=== PATIENT | male | born 2000 | race American Indian/Alaskan Native ===

== ENCOUNTER 2022-07-18 20:59 | Observation (INO) | payer BC, MEDICAID ==
[2022-07-18] MEDS ORDERED: Sodium Chloride 0.9% 1,000 ML IV SCH ×2 (22:15→23:30)
[2022-07-18 22:24] LABS: BASOPHILS ABSOLUTE AUTO 0.04 K/uL (0.00-0.10); BASOPHILS PERCENT AUTO 0.5 % (0.1-1.3); EOSINOPHILS ABSOLUTE AUTO 0.03 K/uL (0.00-0.40); EOSINOPHILS PERCENT AUTO 0.4 % (0.0-5.4); HEMATOCRIT 49.8 % (38.4-49.7); HEMOGLOBIN 16.7 g/dL (12.9-16.9); IMMATURE GRAN PERCENT AUTO 0.2 % (0.0-0.7); LYMPHOCYTES ABSOLUTE AUTO 1.77 K/uL (0.8-3.3); LYMPHOCYTES PERCENT AUTO 21.3 % (11.4-47.7); MEAN CORPUSCULAR HEMOGLOBIN 31.3 pg (31.6-35.5); MEAN CORPUSCULAR HGB CONC 33.5 g/dL (31.6-35.5); MEAN CORPUSCULAR VOLUME 93.3 fL (81.4-99.0); MONOCYTES ABSOLUTE AUTO 0.48 K/uL (0.20-0.90); MONOCYTES PERCENT AUTO 5.8 % (3.3-12.6); NEUTROPHILS ABSOLUTE AUTO 5.97 K/uL (1.0-7.6); NEUTROPHILS PERCENT AUTO 71.8 % (40.0-78.1); PLATELET COUNT,PLT 239 K/uL (130-375); RED BLOOD CELL COUNT 5.34 M/uL (4.14-5.76); WHITE BLOOD CELL COUNT,WBC 8.3 K/uL (3.2-11.0)
[2022-07-18 22:30] LABS: IMMATURE GRAN ABSOLUTE AUTO 0.02 K/uL (0.00-0.23)
[2022-07-18 22:48] LABS: A/G RATIO 1.2 (1.2-2.2); ALANINE AMINOTRANSFERASE,ALT 39 U/L (12-78); ALBUMIN 4.5 g/dL (3.4-5.0); ALKALINE PHOSPHATASE 77 U/L (46-116); ASPARTATE AMNIOTRANSFERASE,AST 25 U/L (15-37); BILIRUBIN TOTAL 1.5 mg/dL (0.2-1.0); BLOOD UREA NITROGEN,BUN 11 mg/dL (7-18); CALCIUM 9.3 mg/dL (8.5-10.1); CARBON DIOXIDE,CO2 24 mmol/L (21-32); CHLORIDE,CL 100 mmol/L (100-108); EST CRCL DRUG DOSING (CG) 102.79 mL/min; ESTIMATED GFR 108 mL/min (>60); GLUCOSE RANDOM 77 mg/dL (74-106); MAGNESIUM 1.9 mg/dL (1.8-2.4); POTASSIUM,K 3.5 mmol/L (3.6-5.2); PROTEIN TOTAL,TP 8.3 g/dL (6.4-8.2); SODIUM,NA 137 mmol/L (140-148); TSH ULTRASENSITIVE 30.258 uIU/mL (0.358-3.740)
[2022-07-18 22:52] LABS: ANION GAP 16.5 mmol/L (5.0-14.0)
[2022-07-18] MEDS ORDERED: LORazepam 2 MG/ML SDV IVPUSH ONE (23:19)
[2022-07-19] MEDS ORDERED: Potassium Chloride 10 MEQ in Premix Bag 1 BAG IV ONE (00:51)
[2022-07-19] MEDS ORDERED: LORazepam 2 MG/ML SDV IV PRN (00:51)
[2022-07-19] MEDS ORDERED: Ondansetron 4 MG Tab.DIS PO PRN (00:51)
[2022-07-19] MEDS ORDERED: Enoxaparin 40 MG/0.4 ML Syringe SUBCUT SCH ×2 (00:51→21:00)
[2022-07-19] MEDS ORDERED: Acetaminophen 325 MG Tab PO PRN (00:51)
[2022-07-19] MEDS ORDERED: Albuterol 0.083% 2.5 MG/3 ML Neb Soln NEB PRN (00:51)
[2022-07-19] MEDS ORDERED: Melatonin 3 MG Tab PO PRN (00:51)
[2022-07-19] MEDS ORDERED: Morphine 2 MG/ML SYRINGE IVPUSH PRN (00:51)
[2022-07-19] MEDS ORDERED: Docusate Sodium 100 MG Cap PO PRN (00:51)
[2022-07-19] MEDS ORDERED: oxyCODONE 5 MG Tab PO PRN (00:51)
[2022-07-19 02:38] LABS: APPEARANCE,URINE CLEAR (CLEAR); BILIRUBIN,URINE NEGATIVE (NEGATIVE); COLOR,URINE YELLOW (YELLOW); GLUCOSE,URINE NEGATIVE (NEGATIVE); KETONES,URINE 80 mg/dL (NEGATIVE); LEUKOCYTE ESTERASE,URINE NEGATIVE (NEGATIVE); NITRITE,URINE NEGATIVE (NEGATIVE); OCCULT BLOOD,URINE TRACE-LYSED (NEGATIVE); PROTEIN,URINE NEGATIVE (NEGATIVE); UROBILINOGEN,URINE 0.2 EU/dL (0.2-1.0)
[2022-07-19 02:47] LABS: AMORPHOUS SEDIMENT,URINE NOT SEEN; BACTERIA,URINE RARE; EPITHELIAL CELLS,URINE NOT SEEN; MUCUS,URINE NOT SEEN; RBC,URINE 0-5 (0-5); WBC,URINE 0-5 (0-5)
[2022-07-19] MEDS ORDERED: Levothyroxine 100 MCG Tab PO SCH (07:30)
[2022-07-19] MEDS ORDERED: Pantoprazole 40 MG Vial IV SCH (09:00)
[2022-07-19] MEDS ORDERED: Pantoprazole 40 MG Tab.CR PO SCH (09:30)
== END 2022-07-19 12:55 | disposition home or self-care (01) ==
LOC: JP.ED 20:59 → JP.MS 23:57 → INTOOBSV 23:57 → UNDOADMIN 23:57
PROVIDERS: ADMIT Hospitalist; ATTEND Hospitalist
DX: E87.6 Hypokalemia (principal); E03.9 Hypothyroidism, unspecified; R42 Dizziness and giddiness; F41.9 Anxiety disorder, unspecified; Z88.5 Allergy status to narcotic agent; Z79.890 Hormone replacement therapy; Z20.822 Contact with and (suspected) exposure to COVID-19
CPT/HCPCS: 36415; 76536; 80053; 81001; 82533; 83735; 84439; 84443; 85025; 87635; 96361; 96374; 99221; 99238; 99285; A9270; J1650; J2060; J3480; J7030; G0378; U0002

== ENCOUNTER 2022-08-17 15:00 | Emergency (ER) | payer BC ==
[2022-08-17] MEDS ORDERED: LORazepam 0.5 MG Tab PO ONE (17:48)
== END 2022-08-17 18:12 | disposition home or self-care (01) ==
LOC: JP.ED 15:00
DX: F41.9 Anxiety disorder, unspecified (principal); E03.9 Hypothyroidism, unspecified; Z79.899 Other long term (current) drug therapy; Z88.5 Allergy status to narcotic agent
CPT/HCPCS: 99284; A9270